=== PATIENT | female | born 1950 | race Native Hawaiian/Other Pacific Islander ===

== ENCOUNTER 2022-02-08 19:34 | Emergency (ER) | payer OTHER ==
[~2022-02-08] VITALS: Ht 152.4 cm; Wt 81.6 kg
[~2022-02-08 19:34] MED LIST: FLUTICASON50 MCG/AC1 NAS
[2022-02-08 19:58] LABS: POTASSIUM 3.8 mmol/L (3.6-5.2)
[2022-02-08 20:22] LABS: PLATELET COUNT 227 K/uL (152-353)
[2022-02-08 21:15] VITALS: BP 146/82; TEMP 98.1
[2022-02-08] MEDS ORDERED: CVS PAIN RELIE PO (22:42)
[2022-02-08] MEDS ORDERED: BUCKLEYS C100 MG/5 M PO (22:44)
[2022-02-08] MEDS ORDERED: BACLOFEN10 MG PO (22:45)
[2022-02-08] MEDS ORDERED: PERCOCET1 TA3 PO (22:47)
[2022-02-08] MEDS ORDERED: METO50TA27 PO (22:51)
[2022-02-08] MEDS ORDERED: PANTOPRAZOLE SO40 M1 PO (22:52)
[2022-02-08] MEDS ORDERED: POTASSIUM CHLO20 ME2 PO (22:53)
[2022-02-08] MEDS ORDERED: PREDNISONE10 MG PO (22:55)
[2022-02-08] MEDS ORDERED: PREGABALIN100 MG PO (22:57)
[2022-02-08] MEDS ORDERED: CYAN10009 IM (22:59)
[2022-02-08] MEDS ORDERED: CVS STOOL SOFT100 MG PO (23:00)
[2022-02-08] MEDS ORDERED: FERROUS SULF325 M1 PO (23:01)
[2022-02-08] MEDS ORDERED: FUROSEMIDE40 MG PO (23:04)
[2022-02-08] MEDS ORDERED: KP FOLIC ACID1 MG PO (23:04)
[2022-02-08] MEDS ORDERED: LIDOCAINE PAIN RE4 % EX ×2 (23:07→23:09)
[2022-02-08] MEDS ORDERED: MAGOX 400400 M1 PO (23:10)
[2022-02-08] MEDS ORDERED: METHOTREXATE S2.5 MG PO (23:12)
[2022-02-08] MEDS ORDERED: ADDERALL XR30 MG PO (23:13)
[2022-02-08] MEDS ORDERED: ALLO100T22 PO (23:14)
[2022-02-08] MEDS ORDERED: COLCHICINE0.6 M1 PO (23:15)
[2022-02-08] MEDS ORDERED: LORA10TA3 PO (23:15)
[2022-02-08] MEDS ORDERED: [UNRECOGNIZED DRUG - OTHER] OP (23:22)
== END 2022-02-08 21:15 | disposition still patient (30) ==
LOC: ED 19:34
PROVIDERS: Emergency Medicine Emergency Medical Services
DX: F33.9 Major depressive disorder, recurrent, unspecified (principal); R45.1 Restlessness and agitation; Z11.52 Encounter for screening for COVID-19; Z04.6 Encounter for general psychiatric examination, requested by authority
CPT/HCPCS: 80053; 85027; 87635; 93005; 99283; U0003